=== PATIENT | male | born 1990 | race Hispanic/Latino ===

== ENCOUNTER 2021-04-21 20:44 | Emergency (ER) | payer SELFPAY ==
[~2021-04-21] VITALS: Ht 182.9 cm; Wt 8.0 kg
[2021-04-21 22:01] LABS: HEMATOCRIT 36.8 % (39.0-50.0); HEMOGLOBIN 13.5 g/dl (14.0-18.0); IMMATURE GRANULOCYTES 0.3 % (0.0-5.0); MEAN CELL VOLUME 92.5 fL CALC (80.0-100.0); MEAN CORPUSCULAR HGB 33.9 pG CALC (26.0-32.0); MEAN CORPUSCULAR HGB CONC 36.7 g/dL CAL (32.0-36.0); NEUT# 7.39 thou/uL (1.82-7.42); RED BLOOD COUNT 3.98 mill/uL (4.70-6.10); RED CELL DISTRI WIDTH 11.2 % (11.5-15.5)
[2021-04-21 22:16] LABS: ALBUMIN 4.2 g/dL (3.2-5.0); ALKALINE PHOSPHATASE 61 u/l (38-126); AMYLASE 76 u/l (30-110); ANION GAP 11 (6-22 (CALC)); BILIRUBIN, TOTAL 0.5 mg/dL (0.0-1.4); BUN 21 mg/dL (9-20); BUN/CREATININE RATIO 20 (12-20 (CALC)); CARBON DIOXIDE 27 mmol/l (22-30); CHLORIDE 104 mmol/l (95-108); GFR > 60 ML/MIN (>=60 (CALC)); GFR FOR AFR.AMER. > 60 ML/MIN (>=60 (CALC)); LIPASE 225 u/l (23-300); POTASSIUM 3.1 mmol/l (3.5-5.1); SGOT/AST 20 u/l (17-59); SODIUM 139 mmol/l (137-146); TOTAL PROTEIN 7.5 g/dL (6.3-8.2)
[2021-04-21 22:28] LABS: MYOGLOBIN 24 ng/mL (0 - 121)
[2021-04-21 22:55] LABS: URINE BILIRUBIN - DIPSTICK NEGATIVE (NEGATIVE); URINE BLOOD DIPSTICK NEGATIVE (NEGATIVE); URINE COLOR YELLOW; URINE GLUCOSE - DIPSTICK 100 mg/dL (NEGATIVE); URINE KETONE NEGATIVE (NEGATIVE); URINE LEUK ESTERASE NEGATIVE (NEGATIVE); URINE PROTEIN - DIPSTICK NEGATIVE (NEG-TRACE); URINE SPECIFIC GRAVITY >=1.030; URINE UROBILINOGEN - DIPSTICK 0.2 E.U./dL (0.2)
[2021-04-21 22:56] LABS: URINE NITRITE - DIPSTICK NEGATIVE (Negative)
[2021-04-21] MEDS ORDERED: ONDANSETRON4 MG PO (23:09)
[2021-04-21 23:16] VITALS: BP 124/61
== END 2021-04-21 23:40 | disposition home or self-care (01) | DRG 880 ==
LOC: ED 20:44
PROVIDERS: Emergency Medicine
DX: F41.9 Anxiety disorder, unspecified (principal); R11.10 Vomiting, unspecified